=== PATIENT | female | born 1965 | race Caucasian/White ===

== ENCOUNTER 2021-10-03 16:15 | Emergency (ER) | payer OTHER ==
[~2021-10-03] VITALS: Ht 165.1 cm; Wt 74.8 kg
[~2021-10-03 16:15] MED LIST: CINNAMON500 MG PO; CO Q10100 MG PO; EXCEDRIN EXTRA1 EAC1 PO; MULTIVITAMINS1 EAC8 PO; RED YEAST RICE600 M1 PO
[2021-10-03] MEDS ORDERED: PREDNISONE5 MG PO (20:28)
[2021-10-03] MEDS ORDERED: METHOTREXATE2.5 MG PO (20:29)
== END 2021-10-03 22:26 | disposition home or self-care (01) ==
LOC: ED 16:15
DX: I82.812 Embolism and thrombosis of superficial veins of left lower extremity (principal); M06.9 Rheumatoid arthritis, unspecified; Z87.891 Personal history of nicotine dependence; Z79.82 Long term (current) use of aspirin; Z79.899 Other long term (current) drug therapy
CPT/HCPCS: 93971; 99284-25